=== PATIENT | female | born 1950 | race Caucasian/White ===

== ENCOUNTER 2016-12-13 | Emergency (ER) | payer MEDICAID | END 2016-12-13 15:24 | disposition home or self-care (01) ==

== ENCOUNTER 2017-05-12 14:28 | Outpatient (CLI) | payer MEDICAID ==
[2017-05-12 19:13] LABS: ALBUMIN/GLOBULIN RATIO 1.8 (1.0-2.2); BILIRUBIN,TOTAL 0.4 mg/dL (0.2-1.0); CALCIUM 9.4 mg/dL (8.5-10.3); CREATININE 0.4 mg/dL (0.4-1.0); POTASSIUM 4.4 mmol/L (3.5-5.0); TOTAL PROTEIN 6.9 g/dL (6.7-8.2)
== END 2017-05-12 14:29 | disposition home or self-care (01) ==
LOC: LAB.F 14:28
PROVIDERS: ATTEND Physician Assistant Medical
DX: E88.01 Alpha-1-antitrypsin deficiency (principal); E83.52 Hypercalcemia; I10 Essential (primary) hypertension
CPT/HCPCS: 36415; 80053

== ENCOUNTER 2017-07-08 10:00 | Outpatient (CLI) | payer MEDICAID ==
--- NOTE | 2017-07-08 12:43 | CONSULTATION NOTE ---
Palliative Care Consultation - Referral Referring Provider: Marley Tate PA-C Time of Visit: 10-1115 am Referral setting: Home (Patient is seen at home secondary it is a taxing and considerable effort for the patient to leave the home with severe limiting dypsnea) Referral Reason: COPD / alpha -1 antitrysin MS - Information Sources Records Reviewed: Old records reviewed (minimal records to review) History obtained from: Patient Exam limitations: No limitations - History of Present Illness Brief History of Present Illness: This is a ramon 66 year old woman with severe COPD, presenting with high symptom burden of dypsnea, functional decline, and multiple joint pain attributed to RA per her report. She also has underlying atrial flutter/ tachycardia with her verapamil recently increased by her interventional radiology rn. Patient reports has had longstanding lung problems/emphasema, has been a smoker, has quit on and off over the year, but is at about 5 cigarettes a day as the nicotine patch causes increased heart rate too. She reports was diagnosed with the alpha-1 antitrypsin MZ, rare genetic disease that can accelerate respiratory decline with her hospitalization in [facility] this last winter. She had been admitted for respiratory failure, and has been oxygen dependent since then. She uses her oxygen in her mouth, as gets "nose bleeds" otherwise, was seen in ED 11/2016 for epitaxis. Her perception is that she has continued to decline, her respiratory distress/dyspnea increased steadily, but most impactful has been on activity this last few weeks. She reports it is all she can do to walk to the door about 10 feet, difficulty tolerating going to BR, and spends most of the day on couch. It can take her in hour to attend to her cat box, and can't walk outside anymore. Her understanding of her disease is she will continue to decline, the average age of with her dx is 64, and she turns 67 next in August. When explored her goals, she just wants to be comfortable, she would like to at home, though cannot identify any primary caregiver that would be able to take care of her. She has two sisters in [place] who work, her GUSTABO [place] is being set up to be her DPOA, she is , limited resources, and estranged from her two daughters. She also has longstanding anxiety disorder, managed at one time valium 5 mg 6x a day, has been working with [facility] and on buspar 10 mg 4 x a day, and now valium 5 mg BID. She is very much interested in transitioning to hospice. Medical/Surgical History - Past Medical History Cardiovascular: reports: Congestive heart failure, Hypertension, Atrial flutter Respiratory: reports: COPD, Pneumonia Neuro: reports: Tremors Endocrine/Autoimmune: reports: None GI: reports: None EGG SEPARATOR: reports: None : reports: None HEENT: reports: Chronic vision loss Psych: reports: Depression, Anxiety (long standing anxiety "always been a worrier") Musculoskeletal: reports: Rheumatoid arthritis, Fatigue Derm: reports: None MRSA Hx?: No - Substance History Use: Uses substance without health or social issues: Tobacco (5-6 cigerettes/ day on and off) Tobacco Details: Cigarettes, Environmental Exposure, Occupational Exposure Social History - Living Situation Living arrangement: At home Living Situation: Alone Support System: Lives in a small house back in [place] [facility], unable to care for current living situation, has neighbors that take her shopping but unclear of could tolerated. He sister Mary and GUSTABO had been taking her to appointments. She has another sister in [place], as well as 2 daughters who are estranged. Mother is with early ALZ. Family History - Family History Family History: Mother: Alive and Well, Alzheimer's Disease, Father: , COPD/Emphysema, Sister: Alive and Well, COPD/Emphysema Family History Comment/Other: Reports when identified genetic dx, grandmother had NOT smoked and of lung disease, father and brother of lung disease suspect + for disease. Sisters and daughters currently pursing testing Medications/Allergies - Medications Home Medications: Ambulatory Orders Medication Instructions Recorded Confirmed Albuterol Sulf [Ventolin Hfa 2 puffs INH Q3HR PRN 07/08/17 07/08/17 Inhaler] Budesonide [Pulmicort] 0.25 mg INH BID 07/08/17 07/08/17 Buspirone HCl 10 mg PO QID 07/08/17 07/08/17 Calcitonin,[place],Synthetic 1 inh INH DAILY 07/08/17 07/08/17 [Calcitonin-[place]] Guaifenesin [Mucinex] 600 mg PO BID 07/08/17 07/08/17 Sulfamethoxazole/Trimethoprim 1 tab PO DAILY 07/08/17 07/08/17 [Bactrim 400-80 mg Tablet] Tiotropium Clarence [Spiriva 1 puffs INH DAILY 07/08/17 07/08/17 Respimat] Turmeric/Turmeric Root Extract 1 cap PO QID 07/08/17 07/08/17 [Turmeric 500 mg Capsule] Verapamil HCl [Verapamil ER] 120 mg PO QPM 07/08/17 07/08/17 Verapamil HCl [Verapamil ER] 240 mg PO QDBREAKFAST 07/08/17 07/08/17 diazePAM [Valium] 5 mg PO BID 07/08/17 07/08/17 - Allergies Allergies/Adverse Reactions: Allergies Allergy/AdvReac Type Severity Reaction Status Date / Time Penicillins Allergy Unknown Verified 12/13/16 14:19 Review of Systems - Constitutional Constitutional: reports: Fatigue, Weakness, Weight gain - Eyes Eyes: reports: Vision loss - Ears, Nose & Throat Ears, Nose & Throat: reports: Dental decay (has tooth left lower jaw that has been problematic, has AB available if needed) - Cardiovascular Cariovascular: reports: Chest pain (reports tightness with dyspnea), Exertional dyspnea, Decr. 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 denies: Abdominal pain, Constipation , Nausea - Genitourinary Genitourinary: denies: Dysuria, Urgency - Musculoskeletal Musculoskeletal: reports: Muscle aches (reports ataxia), Limited range of motion , Muscle weakness, Joint swelling - Integumentary Integumentary: reports: Dryness - Neurological Neurological: reports: General weakness, Pre-existing deficit (reports proprioception/balance issues/tremors/ataxia) - Psychiatric Psychiatric: reports: Depression, Anxiety. denies: Suicidal - Endocrine Endocrine: reports: Intolerance to cold - Hematologic/Lymphatic Hematologic/Lymphatic: reports: Anemia - All Other Systems All Other Systems: reports: Reviewed and negative Physical Examination - Vital Signs Temperature: 97.6 C Pulse Rate: 96 Respiratory Rate: 22 O2 Saturation: 99 (3 l at rest) Blood Pressure: 138/72 - Physical Exam General Appearance: positive: Mild distress, Anxious Eyes Bilateral: positive: Normal inspection ENT: positive: No signs of dehydration Neck: positive: Trachea midline Respiratory: positive: Wheezes (anteriorly slight;), Other (severe diminished BS thoughout posteriorly) Cardiovascular: positive: Tachycardia Abdomen: positive: Nml bowel sounds Skin: positive: Pallor Extremities: positive: No pedal edema, Other (gait slightly ataxic, moves slowly ) Neurologic/Psychiatric: positive: Oriented x3, Weakness, Slurred/abnml speech Palliative Care - POLST Patient has POLST: Yes POLST Status: DNR, Comfort Measures Pain: Pain worsening, Location (reports all through joints has tried tumeric per PCP without much relief. Nots in shoulders, legs lock up), Severity (mod/ severe) Drowsiness: Mild (1-3) Nausea: None Anxiety: Severe (7-10) (gets to worrying about things; though reports at peace with dying) Dyspnea: Severe (7-10), Comment (needs frequent rest periods with conversation;) Anorexia: Moderate (4-6) Insomnia: Sleeps poorly (until awakens with dyspnea, needs Albuterol inhaler) Constipation: No Feelings of wellbeing/Perceived Quality of Life: Worsening Performance Status: Previous level of function prior to this episode [two weeks ago was able to go to store with neighbor, walk short distances, tolerate ambulating in home, unable to tolerate bathing]. Current level of functioning [patient mostly on couch, amb. to BR, minimizes walking]. Palliative Care Performance Status [40%] . - Palliative Care Discussion: Surrogate decision maker-Samuel MONTEJO has agreed, in process working with anchor tacker in getting "affairs" in order. Patient understands she is rapidly declining, she is overwhelmed in trying to figure out how to get the support she needs with her declining health and increased needs. Her goal is to "be calm ", she has done some energy work/reiki and feels spiritually she is going to be okay, but because her body has continued to fail her and her symptoms significant she finds it difficult. Her hope is to be at home to , she loves to be by herself, but finding it difficult and more stressful. As noted, cannot identify any one to be her primary caregiver, discussed will need to work with social insurance administrator to have a safe plan. Discussed OSVALDO, is on medicaid, has not applied though has been in touch with [facility] for Meals on Wheels. She has two rescue cats which she has instructions for on her table if something happens, had to give up her dogs. She is trying to stay positive and hopes for better quality recognizing quantity is limited. Family aware of her decline, unclear if will be supportive of hospice, she will be talking to them. Asked if wanting reconciliation with her daughters, she felt she is okay but concerned about them. Results - Lab Results Lab results reviewed: Yes Impression and Recommendations - Palliative Care Impression: This is a 66 year old woman with severe end stage COPD complicated by her underlying diagnosis of Alpha-1 Antitrypsin MZ, which was found this last winter. She has severe dyspnea at rest, joint pain/not controlled, generalized anxiety disorder, anorexia, and functional decline. Consistent with patient's goals of care will transition to hospice team. Recommendations/Counseling Done: 1. Endstage COPD. Patient uses 02 in mouth related to history of nose bleeds. May consider if patient accepting possible mask for night time use. Patient newly on budinoside with hand held, gets very claustrophobic and anxious, hoping when clinical staff are present she can take a treatment, feeling this would allay her anxiety, reviewed would depend on their timing. Feels windpipe "collapses" finds MDI albuterol effective but neb. makes her "heart race" inst. not to use more than every 2 hours. Reviewed the comfort kit for hospice, and that MS can be used for distress. Pacing and energy conservation most likely more of benefit currently. Did encourage if able to cut down on smoking, gets withdrawals and doesn't tolerate nicotine patches. Wants to "stay calm" and manage with less distress. 2. Weakness. Patient has had one fall in last few weeks, difficulty with proprioception, will have ADJUNCT PSYCHOLOGY FACULTY MEMBER explore [facility]. Will need "bed bath" unable to tolerate much activity. 3. Anorexia. Mostly surviving on Ensure, gets Meals on Wheels but meal prep difficult and most time does not feel hungery. 4. Acute on Chronic Pain. Patient describes severe multijoint pain attributes to RA, her sister has severe as well, her understanding can be part of the constellation regarding her genetic deficiency. Has been trialing Tumeric without much success. May benefit with short acting opioid for both pain/ dyspnea. Will need safety monitoring. 5. Advanced Care Planning. Counseling on goals of care, after review of continuum, patient opted to move forward on hospice. Call to PCP Marley Melendez to confirm in agreement with plan, very supportive of patient's goals. Declined hospital bed for now. POLST completed with DNAR/COMFORT MEASURES " Focus on being comfortable and at end of life a comfortable and respectful ." Coordination with hospice team for admit tomorrow. Time Spent: 75 minutes with greater than 50% done in counseling and coordination of care regarding hospice/anticipatory guidance and symptom management.
== END 2017-07-08 10:01 | disposition home or self-care (01) ==
LOC: PC 10:00
PROVIDERS: ATTEND Nurse Practitioner Adult Health
DX: Z51.5 Encounter for palliative care (principal); J44.9 Chronic obstructive pulmonary disease, unspecified; Z99.81 Dependence on supplemental oxygen; R53.1 Weakness; R63.0 Anorexia; G89.29 Other chronic pain; M06.9 Rheumatoid arthritis, unspecified; I48.92 Unspecified atrial flutter; R00.0 Tachycardia, unspecified; R06.00 Dyspnea, unspecified; F17.210 Nicotine dependence, cigarettes, uncomplicated; E88.01 Alpha-1-antitrypsin deficiency; F41.9 Anxiety disorder, unspecified; I50.9 Heart failure, unspecified; I10 Essential (primary) hypertension; F32.9 Major depressive disorder, single episode, unspecified; H54.7 Unspecified visual loss; Z79.51 Long term (current) use of inhaled steroids; K02.9 Dental caries, unspecified; R05 Cough; D64.9 Anemia, unspecified; Z66 Do not resuscitate
CPT/HCPCS: 99345